=== PATIENT | male | born 1950 | race Caucasian/White ===

== ENCOUNTER 2021-12-02 13:10 | Observation (INO) ==
[2021-12-02] MEDS ORDERED: 0.9 % Sodium Chloride 1,000 ML IVC ONE (15:21)
[2021-12-02] MEDS ORDERED: Aspirin 325 MG TABLET PO ONE (15:21)
[2021-12-02 15:22] LABS: BUN/Creatinine Ratio 19 (6-26); Blood Urea Nitrogen 25 mg/dL (8-23); Calcium 9.3 mg/dL (8.6-10.3); Carbon Dioxide 28 mEq/L (23-29); Chloride 102 mEq/L (98-107); Glucose 118 mg/dL (70-105); Osmolality,Calculated 293 (280-300); Potassium 4.1 mEq/L (3.5-5.1); Sodium 139 mEq/L (136-145); eGFR For African Americans > 60 (> 60); eGFR For Non-African Americans 54 (> 60)
[2021-12-02 15:28] LABS: Basophils % 0.4 %; Eosinophils # 0.1 K/mcL (0.0-0.6); Eosinophils % 1.1 %; Hematocrit 44.4 % (37.5-50.1); Hemoglobin 14.5 g/dL (12.9-16.9); Immature Granulocytes % 0.2 % (0-4); Lymphocytes # 2.2 K/mcL (0.6-4.6); Lymphocytes % 38.3 %; Mean Corpuscular HGB Conc 32.7 g/dL (31.6-35.5); Mean Corpuscular Hemoglobin 30.1 pg (28.0-33.3); Mean Corpuscular Volume 92.3 fL (83.0-100.0); Mean Platelet Volume 10.7 fL (9.4-12.4); Monocytes # 0.7 K/mcL (0.0-1.3); Monocytes % 12.7 %; Neutrophils # 2.7 K/mcL (1.6-8.9); Platelet Count 220 K/mcL (140-400); Red Blood Count 4.81 M/mcL (4.19-5.50); Red Cell Distribution Width 12.5 % (11.5-14.5); Segmented Neutrophils % 47.3 %; White Blood Count 5.7 K/mcL (4.3-11.1)
[2021-12-02 15:43] LABS: INR 1.1; Prothrombin Time 12.2 Seconds (9.4-12.1)
[2021-12-02 15:46] LABS: Activated Partial Thrombo Time 32.7 Seconds (26.0-36.0)
[2021-12-02 15:47] LABS: Troponin I 0.03 ng/mL (< 0.04)
[2021-12-02 16:00] LABS: Thyroid Stimulating Hormone 2.662 mcIU/mL (0.340-5.600)
[2021-12-02] MEDS ORDERED: Isovue-370 500 ML BOTTLE IVP ONE (16:21)
[2021-12-02] MEDS ORDERED: Perflutren Lipid Microsphere 1.3 ML in 0.9 % Sodium Chloride 8.7 ML IVP PRN (18:03)
[2021-12-02] MEDS ORDERED: *HR* Rivaroxaban 10 MG TABLET PO SCH (18:15)
[2021-12-02] MEDS ORDERED: Acetaminophen 325 MG TABLET PO PRN (18:59)
[2021-12-02] MEDS ORDERED: Naloxone 0.4 MG/ML INJ IVP PRN (18:59)
[2021-12-02] MEDS ORDERED: Melatonin 3 MG TABLET PO PRN (18:59)
[2021-12-02] MEDS ORDERED: Ondansetron 4 MG/2 ML VIAL IVP PRN (18:59)
[2021-12-02] MEDS ORDERED: Famotidine 20 MG TABLET PO SCH (21:00)
[2021-12-03 03:15] LABS: Hematocrit 40.7 % (37.5-50.1); Hemoglobin 13.1 g/dL (12.9-16.9); Mean Corpuscular HGB Conc 32.2 g/dL (31.6-35.5); Mean Corpuscular Hemoglobin 29.7 pg (28.0-33.3); Mean Corpuscular Volume 92.3 fL (83.0-100.0); Mean Platelet Volume 10.6 fL (9.4-12.4); Platelet Count 184 K/mcL (140-400); Red Blood Count 4.41 M/mcL (4.19-5.50); Red Cell Distribution Width 12.5 % (11.5-14.5)
[2021-12-03 03:37] LABS: BUN/Creatinine Ratio 21 (6-26); Blood Urea Nitrogen 21 mg/dL (8-23); Calcium 8.5 mg/dL (8.6-10.3); Carbon Dioxide 25 mEq/L (23-29); Chloride 105 mEq/L (98-107); Chol/HDL Ratio 3.4 (0-4.9); Cholesterol 95 mg/dL (< 200); Glucose 113 mg/dL (70-105); HDL Cholesterol 28 mg/dL (40-59); LDL Cholesterol,Calculated 35 mg/dL (< 100); Magnesium 1.8 mg/dL (1.6-2.6); Osmolality,Calculated 292 (280-300); Potassium 3.8 mEq/L (3.5-5.1); Sodium 139 mEq/L (136-145); Triglycerides 158 mg/dL (< 150); Troponin I < 0.03 ng/mL (< 0.04); eGFR For African Americans > 60 (> 60); eGFR For Non-African Americans > 60 (> 60)
[2021-12-03 07:54] VITALS: TEMP 98.1
[2021-12-03] MEDS ORDERED: DilTIAZem CD (24hr) 120 MG CAP.ER.24H PO SCH (09:00)
[2021-12-03 11:37] VITALS: BP 127/77; PULSE 75; O2SAT 96
== END 2021-12-03 15:22 | disposition home or self-care (01) ==
LOC: 2ANU 13:10 → EMEROOARM 13:10 → 2ANU 19:54
PROVIDERS: ADMIT Internal Medicine; ATTEND Internal Medicine